=== PATIENT | female | born 1985 | race Asian ===

== ENCOUNTER 2018-05-13 07:30 | Inpatient (IN) | payer OTHER ==
[~2018-05-13] VITALS: Ht 162.6 cm; Wt 97.1 kg
[2018-05-13] MEDS ORDERED: LR 1,000 ML IV ONE (11:15)
[2018-05-13] MEDS ORDERED: CEFAZOLIN 2 GM IVPB PREMIX 50 ML IV ONE (11:15)
[2018-05-13 11:55] LABS: HEMOGLOBIN 12.1 g/dL (12.0-16.0); RED BLOOD CELL COUNT(AUTO) 4.27 MIL/uL (4.2-6.2); WHITE BLOOD COUNT (AUTO) 7.9 K/uL (4.8-10.8)
[2018-05-13 11:56] LABS: BASOPHILS % (AUTO) 0.5 % (0.0-2.0); EOSINOPHILS % (AUTO) 0.6 % (0.0-4.0); LYMPHOCYTES # (AUTO) 1.4 K/uL (1.0-5.5); LYMPHOCYTES % (AUTO) 17.7 % (20.5-51.5); MEAN CORPUSCULAR HEMOGLOBIN 28 pg (27-31); MEAN CORPUSCULAR HGB CONC 33 % (32-36); MEAN CORPUSCULAR VOLUME 87 fL (79.0-98.0); MONOCYTES # (AUTO) 0.4 K/uL (0.0-1.0); MONOCYTES % (AUTO) 4.6 % (1.7-9.3); NEUTROPHILS # (AUTO) 6.1 K/uL (1.8-7.7); NEUTROPHILS % (AUTO) 76.6 % (40.0-70.0); PLATELET COUNT (AUTO) 178 K/uL (130-430); RED CELL DISTRIBUTION WIDTH 17.6 % (9.0-15.0)
[2018-05-13] MEDS ORDERED: OXYTOCIN 10 UNIT/ML VIAL IV ONE (12:16)
[2018-05-13] MEDS ORDERED: LR 1,000 ML IV.SOLN IV ONE (12:16)
[2018-05-13] MEDS ORDERED: MORPHINE SULFATE 10MG/10ML PF AMP EP ONE (12:16)
[2018-05-13] MEDS ORDERED: MIDAZOLAM HCL 5 MG/5 ML VIAL IVP ONE (12:16)
[2018-05-13] MEDS ORDERED: BUPIVACAINE /DEX PF 0.75% SPINAL 2 ML AMP INJ ONE (12:16)
[2018-05-13] MEDS ORDERED: NS IRRIG SOLN 1000 ML IR ONE (12:16)
[2018-05-13] MEDS ORDERED: NALBUPHINE HCL 10 MG/ML AMP IVP PRN (12:30)
[2018-05-13] MEDS ORDERED: DIPHENHYDRAMINE INJ 50 MG/ML VIAL IVP PRN (12:30)
[2018-05-13] MEDS ORDERED: fentaNYL CITRATE/PF 100 MCG/2 ML AMP IVP PRN ×2 (12:30)
[2018-05-13] MEDS ORDERED: KETOROLAC TROMETHAMINE 60 MG/2 ML VIAL IM PRN (12:30)
[2018-05-13] MEDS ORDERED: MORPHINE SULFATE 10MG/10ML PF AMP SP SCH (12:30)
[2018-05-13] MEDS ORDERED: NALOXONE HCL 0.4 MG/ML AMP (NARCAN) IVP PRN ×2 (12:30)
[2018-05-13] MEDS ORDERED: ONDANSETRON HCL 4 MG/2 ML VIAL IVP PRN (12:30)
[2018-05-13] MEDS ORDERED: LR 1,000 ML IV SCH (13:40)
[2018-05-13] MEDS ORDERED: LANOLIN 7 GM OINT. TP PRN (13:45)
[2018-05-13] MEDS ORDERED: OXYCODONE/ACETAMINOPHEN 5-325 TABLET PO PRN (13:45)
[2018-05-13] MEDS ORDERED: ANUSOL 1 EA SUPP.RECT (PREPARATION H) RC PRN (13:45)
[2018-05-13] MEDS ORDERED: SIMETHICONE 80 MG TAB.CHEW PO PRN (13:45)
[2018-05-13] MEDS ORDERED: BISACODYL 10 MG/SUPPOSITORY RC PRN (13:45)
[2018-05-13] MEDS ORDERED: SENNOSIDES/DOCUSATE SODIUM 1 TAB TABLET(SENOKOT-S) PO PRN (13:45)
[2018-05-13] MEDS ORDERED: OXYTOCIN/0.9 % SODIUM CHLORIDE 1,000 ML IV ONE ×2 (14:14→18:38)
[2018-05-13] MEDS ORDERED: METHYLERGONOVINE MALEATE 0.2 MG/ML AMP IM ONE (16:30)
[2018-05-13] MEDS ORDERED: METHYLERGONOVINE MALEATE 0.2 MG TABLET PO SCH (16:30)
[2018-05-13] MEDS ORDERED: METHYLERGONOVINE MALEATE 0.2 MG/ML AMP ONE (16:31)
[2018-05-13 16:45] LABS: HEMATOCRIT 30.2 % (36-48); HEMOGLOBIN 10.1 g/dL (12.0-16.0); MEAN CORPUSCULAR VOLUME 87 fL (79.0-98.0); RED BLOOD CELL COUNT(AUTO) 3.46 MIL/uL (4.2-6.2); WHITE BLOOD COUNT (AUTO) 12.9 K/uL (4.8-10.8)
[2018-05-13 16:46] LABS: BASOPHILS % (AUTO) 0.2 % (0.0-2.0); EOSINOPHILS % (AUTO) 0.1 % (0.0-4.0); LYMPHOCYTES # (AUTO) 1.3 K/uL (1.0-5.5); LYMPHOCYTES % (AUTO) 9.9 % (20.5-51.5); MEAN CORPUSCULAR HEMOGLOBIN 29 pg (27-31); MEAN CORPUSCULAR HGB CONC 33 % (32-36); MONOCYTES # (AUTO) 0.5 K/uL (0.0-1.0); MONOCYTES % (AUTO) 3.7 % (1.7-9.3); NEUTROPHILS # (AUTO) 11.1 K/uL (1.8-7.7); NEUTROPHILS % (AUTO) 86.1 % (40.0-70.0); PLATELET COUNT (AUTO) 158 K/uL (130-430); RED CELL DISTRIBUTION WIDTH 17.7 % (9.0-15.0)
[2018-05-13] MEDS ORDERED: HEMABATE 250MCG/ML VIAL AMP IM ONE ×2 (17:00→17:05)
[2018-05-13] MEDS ORDERED: NACL 0.9% 1,000 ML IV ONE (17:00)
[2018-05-13] MEDS ORDERED: DIPHENOXYLATE HCL/ATROP SULF 2.5 MG TAB PO ONE (17:15)
[2018-05-13] MEDS ORDERED: MORPHINE SULFATE 10 MG/ML VIAL ONE (17:37)
[2018-05-13] MEDS ORDERED: MORPHINE SULFATE 10 MG/ML VIAL IM ONE (17:45)
[2018-05-13] MEDS: CEFAZOLIN 1 GM IVPB PREMIX 50 ML IV SCH (18:40)
[2018-05-13 18:58] VITALS: BP_SYST 102
[2018-05-13] MEDS ORDERED: TEMAZEPAM 15 MG CAPSULE PO PRN (21:00)
[2018-05-13] MEDS: METHYLERGONOVINE MALEATE 0.2 MG TABLET PO SCH (21:00)
[2018-05-13 21:22] LABS: HEMATOCRIT 27.5 % (36-48); MEAN CORPUSCULAR HEMOGLOBIN 29 pg (27-31); MEAN CORPUSCULAR HGB CONC 33 % (32-36); MEAN CORPUSCULAR VOLUME 87 fL (79.0-98.0); PLATELET COUNT (AUTO) 142 K/uL (130-430); RED BLOOD CELL COUNT(AUTO) 3.16 MIL/uL (4.2-6.2); RED CELL DISTRIBUTION WIDTH 17.4 % (9.0-15.0); WHITE BLOOD COUNT (AUTO) 11.2 K/uL (4.8-10.8)
[2018-05-13 21:23] LABS: BASOPHILS % (AUTO) 0.3 % (0.0-2.0); EOSINOPHILS % (AUTO) 0.2 % (0.0-4.0); LYMPHOCYTES # (AUTO) 1.2 K/uL (1.0-5.5); LYMPHOCYTES % (AUTO) 10.8 % (20.5-51.5); MONOCYTES # (AUTO) 0.5 K/uL (0.0-1.0); MONOCYTES % (AUTO) 4.1 % (1.7-9.3); NEUTROPHILS # (AUTO) 9.5 K/uL (1.8-7.7); NEUTROPHILS % (AUTO) 84.6 % (40.0-70.0)
[2018-05-14] MEDS ORDERED: OXYTOCIN/0.9 % SODIUM CHLORIDE 1,000 ML IV ONE (02:05)
[2018-05-14] MEDS: METHYLERGONOVINE MALEATE 0.2 MG TABLET PO SCH ×2 (05:00→05:23)
[2018-05-14 07:16] LABS: WHITE BLOOD COUNT (AUTO) 7.4 K/uL (4.8-10.8)
[2018-05-14 07:17] LABS: EOSINOPHILS % (AUTO) 0.5 % (0.0-4.0); HEMATOCRIT 23.7 % (36-48); LYMPHOCYTES % (AUTO) 11.7 % (20.5-51.5); MEAN CORPUSCULAR HEMOGLOBIN 29 pg (27-31); MEAN CORPUSCULAR HGB CONC 34 % (32-36); MEAN CORPUSCULAR VOLUME 87 fL (79.0-98.0); NEUTROPHILS % (AUTO) 82.5 % (40.0-70.0); PLATELET COUNT (AUTO) 133 K/uL (130-430); RED BLOOD CELL COUNT(AUTO) 2.73 MIL/uL (4.2-6.2); RED CELL DISTRIBUTION WIDTH 17.7 % (9.0-15.0)
[2018-05-14 07:18] LABS: BASOPHILS % (AUTO) 0.3 % (0.0-2.0); LYMPHOCYTES # (AUTO) 0.9 K/uL (1.0-5.5); MONOCYTES # (AUTO) 0.4 K/uL (0.0-1.0); NEUTROPHILS # (AUTO) 6.1 K/uL (1.8-7.7)
[2018-05-14 07:23] LABS: ALBUMIN 1.7 g/dL (3.4-4.8); CREATININE 0.52 mg/dL (0.55-1.30); POTASSIUM 3.9 mmol/L (3.5-5.1); TOTAL BILIRUBIN 0.4 mg/dL (0.0-1.0)
[2018-05-14 07:36] LABS: PROTHROMBIN TIME 10.1 SECS (9.5-12.5)
[2018-05-14] MEDS: CEFAZOLIN 1 GM IVPB PREMIX 50 ML IV SCH ×2 (10:24)
[2018-05-14] MEDS: IBUPROFEN 600 MG TABLET PO SCH (23:57)
[2018-05-14] MEDS: OXYCODONE/ACETAMINOPHEN 5-325 TABLET PO PRN (23:58)
[2018-05-15] MEDS: IBUPROFEN 600 MG TABLET PO SCH (05:55)
[2018-05-15] MEDS: DOCUSATE SODIUM 100 MG CAPSULE PO PRN ×2 (07:56)
[2018-05-15] MEDS: OXYCODONE/ACETAMINOPHEN 5-325 TABLET PO PRN (07:57)
== END 2018-05-15 09:05 | disposition home or self-care (01) | DRG 784 ==
LOC: SPU 11:07
PROVIDERS: ADMIT Obstetrics & Gynecology; ATTEND Obstetrics & Gynecology
PROC: 0UB70ZZ Excision of Bilateral Fallopian Tubes, Open Approach (ICD-10-PCS; 2018-05-13)
PROC: 10D00Z1 Extraction of Products of Conception, Low, Open Approach (ICD-10-PCS; principal; 2018-05-13 11:00)
DX: O34.211 Maternal care for low transverse scar from previous cesarean delivery (principal); O72.1 Other immediate postpartum hemorrhage; O24.429 Gestational diabetes mellitus in childbirth, unspecified control; O90.81 Anemia of the puerperium; D50.0 Iron deficiency anemia secondary to blood loss (chronic); Z37.0 Single live birth; Z3A.38 38 weeks gestation of pregnancy; Z30.2 Encounter for sterilization
CPT/HCPCS: 36415; 80053; 82962; 85025; 85384-TC; 85610-TC; 85730-TC; 86592; 86886; 86900; 86901; 88302; 94760; C1726; J0690; J1885; J2210; J2250; J2270; J2274; J2590; J3490; J7120